=== PATIENT | female | born 1985 | race Caucasian/White ===

== ENCOUNTER 2016-08-21 13:44 | Emergency (ER) | payer MEDICARE, OTHER ==
--- NOTE | ~2016-08-21 | CR124 ---
[facility] A Service of [facility] & [facility] RADIOLOGY TEXT RESULTS PATIENT: DAVID MACIAS LOCATION: CFTX : 83 UNIT #: [id number] AGE: [address]: Valeria Lee SEX: F ORDER DR: [id number] [facility] [address] [place], [place] [address] [id number] E MR#: [id number] Acc #: [id number] NAME: DAVID MACIAS : 1985 SEX: F STUDY DATE/TIME: 08/21/2016 11:37 UNIT: [facility] ROOM: STUDY DESCRIPTION: CR Foot 2 Views Rt Attending Physician: Valeria Lee P.A.-C. Ordering Physician: Valeria Lee P.A.-C. Primary Care Physician: Cam Moore M.D. MEDICAL IMAGING REPORT This report is preliminary unless electronic signature is present EXAM Right foot 3 views DATE OF STUDY 08/21/2016 COMPARISON None HISTORY Pain after fall today FINDINGS The tarsal, metatarsal, and phalangeal elements are all anatomically normal in position and alignment. There are no articular defects. No fractures or radiopaque foreign bodies in the soft tissues are apparent. IMPRESSION Normal foot. Dictated by... Miguel Mchugh M.D. THIS IS AN ELECTRONICALLY VERIFIED REPORT Miguel Mchugh M.D. at 08/21/2016 3:51 PM TEV/to TD: 08/21/2016 14:29 JOB #: [id number] MEDICAL IMAGING REPORT Page 1 of 1 COPY
--- NOTE | ~2016-08-21 | CR21 ---
[facility] A Service of [facility] & [facility] RADIOLOGY TEXT RESULTS PATIENT: DAVID MACIAS LOCATION: CFTX : 83 UNIT #: [id number] AGE: [address]: Valeria Lee SEX: F ORDER DR: [id number] [facility] [address] [place], [place] [address] [id number] E MR#: [id number] Acc #: [id number] NAME: DAVID MACIAS : 1985 SEX: F STUDY DATE/TIME: 08/21/2016 11:37 UNIT: [facility] ROOM: STUDY DESCRIPTION: CR Ankle Min 3 Views Rt Attending Physician: Valeria Lee P.A.-C. Ordering Physician: Valeria Lee P.A.-C. Primary Care Physician: Cam Moore M.D. MEDICAL IMAGING REPORT This report is preliminary unless electronic signature is present EXAM Right ankle, 3 views, 08/22/2015. CLINICAL HISTORY Pain after fall today. FINDINGS Normal. Dictated by... Miguel Mchugh M.D. THIS IS AN ELECTRONICALLY VERIFIED REPORT Miguel Mchugh M.D. at 08/21/2016 3:51 PM DANILO/meseret TD: 08/21/2016 13:59 JOB #: [id number] MEDICAL IMAGING REPORT Page 1 of 1 COPY
--- NOTE | ~2016-08-21 | CR219 ---
[facility] A Service of [facility] & [facility] RADIOLOGY TEXT RESULTS PATIENT: DAVID MACIAS LOCATION: CFTX : 83 UNIT #: [id number] AGE: [address]: Valeria Lee SEX: F ORDER DR: [id number] [facility] [address] [place], [place] [address] [id number] E MR#: [id number] Acc #: [id number] NAME: DAVID MACIAS : 1985 SEX: F STUDY DATE/TIME: 08/21/2016 11:36 UNIT: [facility] ROOM: STUDY DESCRIPTION: CR Sacrum and Coccyx Min 2 Vie Attending Physician: Valeria Lee P.A.-C. Ordering Physician: Valeria Lee P.A.-C. Primary Care Physician: Cam Moore M.D. MEDICAL IMAGING REPORT This report is preliminary unless electronic signature is present EXAM Sacrum and coccyx, four views, 08/21/16 HISTORY Pain after falling on tailbone today. FINDINGS Normal. Dictated by... Miguel Mchugh M.D. THIS IS AN ELECTRONICALLY VERIFIED REPORT Miguel Mchugh M.D. at 08/21/2016 3:51 PM TEV/tenisha TD: 08/21/2016 14:24 JOB #: [id number] MEDICAL IMAGING REPORT Page 1 of 1 COPY
[~2016-08-21 13:44] MED LIST: ACYCLOVIR PO; ADVAIR 100-501 EAC1 IH; ADVAIR 250-501 EACH IH; ALBUTEROL17 GM INH; BIRTH CONTROL; BIRTH CONTROL PILL PO; BUSPAR PO; CIPRO PO; CYMBALTA PO; DEPAKOTE PO; DESYREL100 MG PO; DICLOFENAC PO; DOXYCYCLINE HY100 M1 PO; DOXYCYCLINE PO; EFFEXOR PO; FLAGYL PO; FLEXERIL10 MG PO; HALDOL PO; IBUPROFEN800 MG PO; KEFLEX PO; NAPROSYN250 M1 PO; NEURONTIN800 MG PO; NITROFURANTOIN100 M3 PO; ORTHO-CYCLEN1 TAB PO; PERCOCET PO; PHENERGAN12.5 MG PO; PHENERGAN25 MG PO; PRENATAL MULITV1 TAB PO; PYRIDIUM PO; SINGULAIR PO; TOPAMAX PO; TRAZODONE PO; ULTRAM PO; VIBRAMYCIN100 M1 PO; VICODIN 5/1 TAB 5/50 PO; VOLTAREN50 MG PO; ZOLOFT PO
== END 2016-08-21 13:47 | disposition home or self-care (01) ==
LOC: CFTX 13:44
DX: S91.311A Laceration without foreign body, right foot, initial encounter (principal); S91.011A Laceration without foreign body, right ankle, initial encounter; F17.210 Nicotine dependence, cigarettes, uncomplicated; Z23 Encounter for immunization; W22.8XXA Striking against or struck by other objects, initial encounter; Y92.009 Unspecified place in unspecified non-institutional (private) residence as the place of occurrence of the external cause
CPT/HCPCS: 12002; 72220; 73610; 73620; 90471; 90715; 99284